=== PATIENT | male | born 1970 | race Caucasian/White ===

== ENCOUNTER 2019-03-27 09:05 | Emergency (ER) | payer OTHER ==
--- NOTE | 2019-03-27 11:13 | Ultrasound Report ---
Reason: LLE swelling s/p surgery Procedure Date: 03/27/2019 Accession Number: [id number] / [id number] Procedure: US - Duplex Ext Veins Left CPT Code: FULL RESULT: EXAM: LEFT LOWER EXTREMITY VENOUS ULTRASOUND EXAM DATE: 03/27/2019 11:08 AM. CLINICAL HISTORY: Left lower extremity swelling. Status post surgery. COMPARISON: None. TECHNIQUE: Real-time sonographic vascular imaging was performed by the manager clinical applications through the lower extremity utilizing both color-flow and Doppler spectral analysis. Multiple patient financial representative static images were saved for review. FINDINGS: Common Femoral Vein (CFV): Normal. CFV-GSV Junction: Normal. Profunda Femoral Vein (PFV): Normal. Femoral Vein (FV) Prox: Normal. Femoral Vein (FV) Mid: Normal. Femoral Vein (FV) Dist: Normal. Popliteal Vein: Normal. Posterior Tibial Veins: Normal. Peroneal Veins: Normal. Contralateral Side CFV: Normal. Other: None. IMPRESSION: 1. No evidence of left lower extremity deep venous thrombosis. RADIA
--- NOTE | 2019-03-27 11:20 | ED Physician Documentation ---
History of Present Illness - Stated complaint Stated Complaint: L LEG PAIN/SWELLING - Chief complaint Chief Complaint: Ext Problem - History obtained from History obtained from: Patient - History of Present Illness Timing: How many weeks ago (2) Pain level max: 5 Pain level now: 4 Improved by: nothing Worsened by: walking - Additonal information Additional information: 48-year-old male had low back surgery approximately 3 months ago. Noticed swelling and increasing pain to the left calf for the past 2 weeks. Concerned about possible DVT. Review of Systems Constitutional: denies: Fever Respiratory: denies: Dyspnea, Cough Skin: denies: Rash PD PAST MEDICAL HISTORY - Past Medical History Past Medical History: Yes Cardiovascular: Hypertension Other Past Medical History: RLS - Past Surgical History Past Surgical History: Yes - Present Medications Home Medications: Ambulatory Orders Medication Instructions Recorded Confirmed Pramipexole Di-HCl [Mirapex ER] 0.375 mg PO 03/27/19 Telmisartan [Micardis] 20 mg PO 03/27/19 hydroCHLOROthiazide 25 mg PO 03/27/19 [Hydrochlorothiazide] - Social History Does the pt smoke?: No Smoking Status: Never smoker Does the pt drink ETOH?: No Does the pt have substance abuse?: No - Immunizations Immunizations are current?: Yes PD ED PE NORMAL - Vitals Vital signs reviewed: Yes - General General: Alert and oriented X 3, No acute distress - HEENT HEENT: Moist mucous membranes - Derm Derm: Warm and dry - Extremities Extremities: Other (Mild unilateral edema to the left lower extremity, mainly of the calf. Mild posterior calf tenderness without cord. Neurovascular intact. Normal skin color.) - Neuro Neuro: Alert and oriented X 3 - Psych Psych: Normal mood Results - Vitals Vitals: Vital Signs - 24 hr 03/27/19 03/27/19 09:09 11:27 Temperature 36.8 C 36.5 C Heart Rate 87 65 Respiratory 18 18 Rate Blood Pressure 147/83 H 126/79 O2 Saturation 99 97 Oxygen O2 Source Room air - Rads (name of study) Duplex ultrasound left lower extremity Radiology: Prelim report reviewed, EMP read contemporaneously, See rad report (No DVT) PD MEDICAL DECISION MAKING - ED course Complexity details: reviewed results, re-evaluated patient, considered dif ferential, d/w patient ED course: 48-year-old male with mild calf swelling. Negative ultrasound for DVT. We will continue supportive care and follow-up with his doctor. No evidence of cellulitis or infectious process. Patient counseled regarding signs and symptoms for which I believe and urgent re-evaluation would be necessary. Patient with good understanding of and agreement to plan and is comfortable going home at this time This document was made in part using voice recognition software. While efforts are made to proofread this document, sound alike and grammatical errors may occur. Departure - Departure Disposition: 01 Home, Self Care Clinical Impression: Peripheral edema Condition: Good Instructions: ED Leg Swelling Unilateral Follow-Up: BLACK RUEDA [Primary Care Provider] - Within 1 week Comments: The cause of the swelling is unclear today, but the good news is is that there is no blood clot in your leg. Return if you worsen. Discharge Date/Time: 03/27/19 11:28
[2019-03-27 11:29] VITALS: BP 126/79
== END 2019-03-27 11:28 | disposition home or self-care (01) ==
LOC: ED 09:05
DX: R60.0 Localized edema (principal); M79.662 Pain in left lower leg; I10 Essential (primary) hypertension
CPT/HCPCS: 99283

== ENCOUNTER 2020-06-24 06:57 | Emergency (ER) | payer OTHER ==
[2020-06-24 07:23] LABS: GLUCOSE, URINE (UA) NEGATIVE (NEGATIVE); KETONES,URINE (UA) NEGATIVE (NEGATIVE); LEUKOCYTE ESTERASE, URINE NEGATIVE (NEGATIVE); NITRITE,URINE NEGATIVE (NEGATIVE); OCCULT BLOOD,URINE LARGE (NEGATIVE); PH,URINE 5.5 PH (5.0-7.5); PROTEIN,URINE 100 mg/dL (NEGATIVE); UROBILINOGEN,URINE 0.2 (NORMAL) E.U./dL (NORMAL)
[2020-06-24 07:28] LABS: CLARITY,URINE CLOUDY (CLEAR)
[2020-06-24 07:29] LABS: BASOPHILS % (AUTO) 0.3 %; EOSINOPHILS # (AUTO) 0.3 10^3/uL (0.0-0.7); HGB - HEMOGLOBIN 15.9 g/dL (14.0-18.0); LYMPHOCYTES # (AUTO) 2.1 10^3/uL (1.5-3.5); LYMPHOCYTES % (AUTO) 30.1 %; MEAN CORPUSCULAR HEMOGLOBIN 31.6 pg (27.0-31.0); MEAN CORPUSCULAR HGB CONC 34.3 g/dL (32.0-36.0); MEAN PLATELET VOLUME 11.1 fL (7.4-11.4); MONOCYTES # (AUTO) 0.8 10^3/uL (0.0-1.0); MONOCYTES % (AUTO) 11.1 %; NEUTROPHILS # (AUTO) 3.8 10^3/uL (1.5-6.6); NEUTROPHILS % (AUTO) 54.2 %; PLT - PLATELET COUNT 220 10^3/uL (130-450); RED BLOOD COUNT 5.03 10^6/uL (4.70-6.10); RED CELL DISTRIBUTION WIDTH 12.5 % (12.0-15.0); WHITE BLOOD COUNT 6.9 x10^3/uL (4.8-10.8)
[2020-06-24 07:30] LABS: ALBUMIN 4.3 g/dL (3.2-5.5); ALBUMIN/GLOBULIN RATIO 1.6 (1.0-2.2); CREATININE 1.2 mg/dL (0.6-1.2)
[2020-06-24 07:32] LABS: BILIRUBIN,URINE NEGATIVE (NEGATIVE); ICTOTEST,URINE NEGATIVE; RBC,URINE TNTC /HPF (0-5)
[2020-06-24] MEDS ORDERED: KETOROLAC 15 MG/ML VIAL IVP STA (07:32)
[2020-06-24] MEDS ORDERED: LIDOCAINE-MPF 2% 7.5 ML in SODIUM CHLORIDE 0.9% 50 ML IV STA (07:32)
[2020-06-24 07:33] LABS: BACTERIA,URINE Rare /HPF (None Seen); SQUAMOUS EPITHELIAL CELL,UR RARE Squamous (<= Few)
[2020-06-24] MEDS ORDERED: SODIUM CHLORIDE 0.9% 1,000 ML IV STA (07:33)
--- NOTE | 2020-06-24 07:40 | ED Physician Documentation ---
History of Present Illness - Stated complaint Stated Complaint: LEFT SIDE PX - Chief complaint Chief Complaint: Abd Pain - History obtained from History obtained from: Patient - History of Present Illness Timing: How many days ago (2.5) Pain level max: 10 Pain level now: 10 - Additonal information Additional information: 49-year-old male presents to the emergency department with left flank pain. He states that this awoke him from sleep at approximately 5 AM. Feels similar to prior kidney stones. Has had 2 kidney stones in the past. Nothing makes this better or worse. Took 400 mg of ibuprofen without relief. Mild nausea, no vomiting. No diarrhea. No fevers. No dysuria or other urinary symptoms. No abdominal pain. Review of Systems Ten Systems: 10 systems reviewed and negative Constitutional: denies: Fever, Chills Respiratory: denies: Cough GI: denies: Vomiting, Diarrhea, Hematemesis, Bloody / black stool Skin: denies: Rash Musculoskeletal: denies: Neck pain, Back pain Neurologic: denies: Headache PD PAST MEDICAL HISTORY - Past Medical History Cardiovascular: Hypertension : Kidney stones - Past Surgical History Past Surgical History: Yes - Present Medications Home Medications: Ambulatory Orders Medication Instructions Recorded Confirmed Pramipexole Di-HCl [Mirapex ER] 0.375 mg PO 03/27/19 Telmisartan [Micardis] 20 mg PO 03/27/19 hydroCHLOROthiazide 25 mg PO 03/27/19 [Hydrochlorothiazide] Ibuprofen [Motrin] 800 mg PO Q8H PRN #30 tablet 06/24/20 Ondansetron Odt [Zofran] 4 mg TL Q6H PRN #10 tablet 06/24/20 Oxycodone HCl/Acetaminophen 1 - 2 each PO Q6H PRN #14 tablet 06/24/20 [Percocet 5-325 mg Tablet] Tamsulosin [Flomax] 0.4 mg PO DAILY #14 capsule 06/24/20 - Allergies Allergies/Adverse Reactions: Allergies Allergy/AdvReac Type Severity Reaction Status Date / Time No Known Drug Allergies Allergy Verified 06/24/20 07:03 - Social History Does the pt smoke?: No Smoking Status: Never smoker Does the pt drink ETOH?: No Does the pt have substance abuse?: No - Immunizations Immunizations are current?: Yes PD ED PE NORMAL - Vitals Vital signs reviewed: Yes - General General: Alert and oriented X 3, Other (appears in pain) - HEENT HEENT: Moist mucous membranes - Neck Neck: Supple, no meningeal sign - Cardiac Cardiac: RRR - Respiratory Respiratory: No respiratory distress, Clear bilaterally - Abdomen Abdomen: Soft, Non tender, Non distended - Back Back: No CVA TTP, No spinal TTP - Derm Derm: Warm and dry - Extremities Extremities: No edema - Neuro Neuro: Alert and oriented X 3 Results - Vitals Vitals: Vital Signs - 24 hr 06/24/20 06/24/20 06/24/20 07:01 08:05 08:41 Temperature 36.4 C L Heart Rate 55 L 54 L 67 Respiratory 18 18 14 Rate Blood Pressure 149/87 H 126/84 H 116/75 O2 Saturation 100 95 96 Oxygen O2 Source Room air - Labs Labs: Laboratory Tests 06/24/20 06/24/20 06/24/20 07:09 07:09 07:15 WBC 6.9 RBC 5.03 Hgb 15.9 Hct 46.3 MCV 92.0 MCH 31.6 H MCHC 34.3 RDW 12.5 Plt Count 220 MPV 11.1 Neut # (Auto) 3.8 Lymph # (Auto) 2.1 Dillon # (Auto) 0.8 Eos # (Auto) 0.3 Baso # (Auto) 0.0 Absolute Nucleated RBC 0.00 Nucleated RBC % 0.0 Sodium 138 Potassium 3.3 L Chloride 102 Carbon Dioxide 25 Anion Gap 11.0 BUN 20 Creatinine 1.2 Estimated GFR (MDRD) 65 L Glucose 137 H Calcium 9.0 Total Bilirubin 1.0 AST 24 ALT 32 Alkaline Phosphatase 81 Total Protein 7.0 Albumin 4.3 Globulin 2.7 Albumin/Globulin Ratio 1.6 Lipase 24 Urine Color DARK YELLOW Urine Clarity CLOUDY Urine pH 5.5 Ur Specific [place] >=1.030 H Urine Protein 100 H Urine Glucose (UA) NEGATIVE Urine Ketones NEGATIVE Urine Occult Blood LARGE H Urine Nitrite NEGATIVE Urine Bilirubin NEGATIVE Urine Urobilinogen 0.2 (NORMAL) Ur Leukocyte Esterase NEGATIVE Urine RBC TNTC H Urine WBC 0-3 Ur Squamous Epith Cells RARE Squamous Urine Bacteria Rare Ur Microscopic Review INDICATED Urine Culture Comments NOT INDICATED PD MEDICAL DECISION MAKING - ED course Complexity details: reviewed results, re-evaluated patient, considered differential, d/w patient, d/w family ED course: Patient with a 3 mm left-sided ureteral stone. Pain well controlled with Toradol and lidocaine. Given IV fluids. Will place on pain medication for home. No fevers. No sepsis. No infected ureteral stone. Patient counseled regarding signs and symptoms for which I believe and urgent re-evaluation would be necessary. Patient with good understanding of and agreement to plan and is comfortable going home at this time This document was made in part using voice recognition software. While efforts are made to proofread this document, sound alike and grammatical errors may occur. Departure - Departure Disposition: 01 Home, Self Care Clinical Impression: Ureteral stone Condition: Good Instructions: ED Stone Renal W Colic Follow-Up: BLACK RUEDA [Primary Care Provider] - Within 1 week Prescriptions: Tamsulosin [Flomax] 0.4 mg PO DAILY #14 capsule Ibuprofen [Motrin] 800 mg PO Q8H PRN #30 tablet PRN Reason: PAIN &/OR FEVER Oxycodone HCl/Acetaminophen [Percocet 5-325 mg Tablet] 1 - 2 each PO Q6H PRN #14 tablet PRN Reason: pain Ondansetron Odt [Zofran] 4 mg TL Q6H PRN #10 tablet PRN Reason: Nausea / Vomiting Comments: Drink plenty of water. Return if you worsen. Consider changing to a nondiuretic blood pressure medication. You do have a 3 mm left-sided ureteral stone Do not drink alcohol or drive while on narcotic pain medicine. Note that many narcotic pain relievers also contain tylenol/acetaminophen. Please ensure that your total dose of acetaminophen from all sources does not exceed 3 grams (3000mg) per day. You may constipated on this medication, take a stool softener such as "Colace" twice a day while you are on it. Also recommend a eces-awg-wyqqeel laxative such as senna or MiraLAX any day that you do not have a bowel movement. If you received narcotic pain medication in the emergency department, do not drive or operate machinery for the next 24 hours.
[2020-06-24] MEDS ORDERED: PROMETHAZINE INJ 25 MG in SODIUM CHLORIDE 0.9% 50 ML IV STA (07:41)
--- NOTE | 2020-06-24 08:32 | CT Report ---
PROCEDURE: Abdomen/Pelvis WO INDICATIONS: L flank pain, h/o renal stones TECHNIQUE: Noncontrast 5 mm thick sections acquired from the diaphragms to the symphysis. 5 mm coronal and sagi ttal reformats were then performed. For radiation dose reduction, the following was used: automated exposure control, adjustment of mA and/or kV according to patient size. COMPARISON: None. FINDINGS: Image quality: Excellent. ABDOMEN: Minimal lingular presumed mild scarring/atelectasis. Solid organs: Liver and spleen are normal in si ze. Gallbladder negative Pancreas is normal in contours. No adrenal nodules. There is a minimally obstructive 3 mm distal left ureteral calculus image 73/3. No other urolithiasis seen. No perinephri c stranding identified Peritoneum and bowel: Unenhanced bowel loops demonstrate normal wall thickness and caliber. No [place] e fluid or air. Normal appendix. Nodes and vessels: No retroperitoneal or mesenteric adenopathy by size criteria. Aorta and inferior vena cava are normal in caliber. Miscellaneous: No ventral hernias. PELVIS: Genitourinary: Bladder wall thickness is normal. Miscellaneous: No inguinal hernias or adenopathy. Bones: No suspicious bony lesions. No vertebral body compression fractures. IMPRESSION: Minimally obstructing distal left ureteral 3 mm calculus. Reviewed by: Erick Luna MD on 06/24/2020 8:31 AM PDT Approved by: Erick Luna MD on 06/24/2020 8:31 AM PDT Station ID: [id number]
[2020-06-24 08:42] VITALS: BP 116/75
== END 2020-06-24 08:56 | disposition home or self-care (01) ==
LOC: ED 06:57
DX: N20.1 Calculus of ureter (principal); Z87.442 Personal history of urinary calculi; I10 Essential (primary) hypertension
CPT/HCPCS: 36415; 74176; 80053; 81001; 83690; 85025; 96365; 96375; 99284; J7040; 81003; 87086

== ENCOUNTER 2021-06-26 13:51 | Emergency (ER) | payer OTHER ==
[2021-06-26 13:58] VITALS: BP 148/90
--- NOTE | 2021-06-26 14:14 | XRAY Report ---
PROCEDURE: Knee 4 View RT INDICATIONS: Trauma TECHNIQUE: 3 views of the right knee(s) were acquired. COMPARISON: None. FINDINGS: Bones: No fractures or dislocations. No suspicious bony lesions. Inferior patellar bone spur. Soft tissues: No joint effusion. No suspicious soft tissue calcifications. IMPRESSION: No fracture. No acute osseous lesion. If there are persistent symptoms or continued clinical concern for pathology, then repeat plain film radiographs (7-10 days) or advanced imaging (CT, MR, bone scan) should be considered for further evaluation. Reviewed by: Farrah Ochoa MD, PhD on 06/26/2021 2:13 PM PDT Approved by: Farrah Ochoa MD, PhD on 06/26/2021 2:13 PM PDT Station ID: [id number]
--- NOTE | 2021-06-26 14:24 | ED Physician Documentation ---
History of Present Illness - Stated complaint Stated Complaint: RT KNEE PX - Chief complaint Chief Complaint: Ext Problem - Additonal information Additional information: 50-year-old male presents the emergency department for evaluation of 2 weeks acute right knee pain. He denies any inciting events or trauma and has no history of pain in this knee previous. 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 It is mostly just superior to the patella and medially. There is been no swelling or fevers but he feels that his knee is unstable when walking down hills. He has been taking Tylenol and ibuprofen without relief of pain. Review of Systems Constitutional: reports: Reviewed and negative Cardiac: reports: Reviewed and negative Respiratory: reports: Reviewed and negative GI: reports: Reviewed and negative : reports: Reviewed and negative Musculoskeletal: reports: Joint pain (right knee) Neurologic: reports: Reviewed and negative PD PAST MEDICAL HISTORY - Past Medical History Cardiovascular: Hypertension : Kidney stones - Past Surgical History Past Surgical History: Yes - Present Medications Home Medications: Ambulatory Orders Medication Instructions Recorded Confirmed Pramipexole Di-HCl [Mirapex ER] 0.375 mg PO 03/27/19 Telmisartan [Micardis] 20 mg PO 03/27/19 hydroCHLOROthiazide 25 mg PO 03/27/19 [Hydrochlorothiazide] Ibuprofen [Motrin] 800 mg PO Q8H PRN #30 tablet 06/24/20 Ondansetron Odt [Zofran] 4 mg TL Q6H PRN #10 tablet 06/24/20 Oxycodone HCl/Acetaminophen 1 - 2 each PO Q6H PRN #14 tablet 06/24/20 [Percocet 5-325 mg Tablet] Tamsulosin [Flomax] 0.4 mg PO DAILY #14 capsule 06/24/20 dexAMETHasone [Decadron] 4 mg PO DAILY #5 tablet 06/26/21 - Allergies Allergies/Adverse Reactions: Allergies Allergy/AdvReac Type Severity Reaction Status Date / Time No Known Drug Allergies Allergy Verified 06/26/21 13:54 - Social History Does the pt smoke?: No Smoking Status: Never smoker Does the pt drink ETOH?: No Does the pt have substance abuse?: No - Immunizations Immunizations are current?: Yes PD ED PE EXPANDED - General General: Alert, No acute distress - Extremities Extremities: Right knee (tenderness superiro to patella. mild tenderness medial joint line. no laxity with stress test. antalgic gait. no swelling, cassi thema. Full actuive ROM, though painful) Results - Vitals Vitals: Vital Signs - 24 hr 06/26/21 13:54 Temperature 36.9 C Heart Rate 88 Respiratory 16 Rate Blood Pressure 148/90 H O2 Saturation 98 Oxygen O2 Source Room air - Rads (name of study) right knee Radiology: Final report received (no fracture or acute dislocation) PD MEDICAL DECISION MAKING - ED course Complexity details: reviewed results, re-evaluated patient, d/w patient ED course: 50-year-old male presents emergency department for evaluation of 2 weeks acute right knee pain. No swelling erythema or fevers and no micromotion tenderness therefore low suspicion for septic joint. X-ray is unrevealing. He has tenderness mostly just superior to the patella and on the medial joint line. I suspect a patellar tendinitis as well is likely a meniscal injury though the ca use of which is uncertain. Patient is finding very little relief with ibuprofen and Tylenol thus he will be prescribed a 5-day course of Decadron. He has been given a knee immobilizer and crutches. Advised to follow-up with PCP. He may benefit from physical therapy or consideration of advanced imaging if not markedly improved with these conservative measures in 7 to 10 days. Departure - Departure Disposition: 01 Home, Self Care Clinical Impression: Patellar tendinitis of right knee, Right medial knee pain Condition: Stable Record reviewed to determine appropriate education?: Yes Instructions: ED RICE Follow-Up: EULOGIO SHEETS PA-C [Primary Care Provider] - Prescriptions: dexAMETHasone [Decadron] 4 mg PO DAILY #5 tablet Comments: Jean the x-ray of your knee does not show any worrisome findings. I suspect that you have inflammation of your patellar tendon likely causing most of the pain above the knee. You may also have a meniscal injury which is causing the pain in the inside of your knee. Use the knee immobilizer and crutches when out of bed for the next week. To help with pain I am prescribing a 5-day course of Decadron this is a steroid. It should help reduce pain and inflammation over the next 48 to 72 hours. While taking this 5-day course of steroids do not take ibuprofen, Aleve or any other NSAID medication. You may resume once you are done with the steroids. If the German bandage and the knee immobilizer is not improving your symptoms over the next 7 to 10 days you would benefit from seeing your primary care provider. At that point you would likely benefit from referral to a physical therapist or follow-up with orthopedics for consideration of an MRI.
== END 2021-06-26 15:07 | disposition home or self-care (01) ==
LOC: ED 13:51
DX: M76.51 Patellar tendinitis, right knee (principal); M25.561 Pain in right knee; I10 Essential (primary) hypertension
CPT/HCPCS: 99283

== ENCOUNTER 2021-08-05 07:14 | Outpatient (CLI) | payer OTHER ==
--- NOTE | 2021-08-06 10:45 | MRI Report ---
PROCEDURE: Knee RT W/O INDICATIONS: RIGHT KNEE PAIN TECHNIQUE: Noncontrast sagittal PD fast spin echo and T2 fast spin echo with fat saturation, sagittal 3-D gradie nt sequence with fat saturation; coronal T1 spin echo and PD fast spin echo with fat saturation, and axial PD fast spin echo with fat saturation through the knee. COMPARISON: X-ray of the right knee, 4 views, 06/26/2021. FINDINGS: Image quality: Excellent. Menisci: A small nondisplaced horizontal tear involving the inferior articular surface at the junctio n of the body and posterior horn of the medial meniscus. Lateral meniscus demonstrates normal morphol ogy and internal signal. The meniscal root ligaments appear intact. Cruciate ligaments: The anterior and posterior cruciate ligaments appear intact. Medial structures: The medial collateral ligament appears intact. The semimembranosus tendon insert ions and meniscocapsular junction appear intact. Visualized portions of the pes anserinus tendons ap pear normal. No abnormal bursal fluid. Lateral structures: The lateral collateral ligament, long and short heads of the biceps femoris tend on appear intact. The popliteus tendon appears normal. Iliotibial band appears normal. Anterior structures: There is thickening and edema in the distal quadriceps tendon at patellar insert ion, consistent with tendinitis. The patellar tendons is intact. Patellar alignment is normal. No f emoral trochlear dysplasia or ventral trochlear prominence. No edema in the infrapatellar fat pad. T here is small amount of fluid within the prepatellar bursa consistent with prepatellar bursitis. Bones and cartilage: No bone marrow contusions or fractures. The cartilage of the medial and latera l femorotibial compartments, as well as the patellofemoral compartment, appears normal in thickness. Joint space: There is small knee joint effusion. No Hernandez?s cyst. Normal appearing synovial plicae are incidentally noted. IMPRESSION: 1. Small nondisplaced horizontal tear of the medial meniscus at the junction of the body and posterio r horn. 2. Quadriceps tendinitis. 3. Pepatellar bursitis. 4. Small knee joint effusion. Reviewed by: Seven Paz MD on 08/06/2021 10:44 AM PDT Approved by: Seven Paz MD on 08/06/2021 10:44 AM PDT Station ID: [id number]
== END 2021-08-05 07:15 | disposition home or self-care (01) ==
LOC: DI 07:14
PROVIDERS: ATTEND Physician Assistant
DX: S83.241A Other tear of medial meniscus, current injury, right knee, initial encounter (principal); M76.891 Other specified enthesopathies of right lower limb, excluding foot; M70.41 Prepatellar bursitis, right knee; M25.461 Effusion, right knee